=== PATIENT | male | born 1955 | race Caucasian/White ===

== ENCOUNTER 2017-12-23 15:26 | Emergency (ER) | payer OTHER ==
--- NOTE | 2017-12-23 15:36 | EDPHY ---
H & P Stated Complaint: Lump on RLE,swollen R ankle;intermittent numbness R thigh,no inj Time Seen by Provider: 12/23/17 15:35 - Personal History Current Tetanus Diphtheria and Acellular Pertussis (TDAP): Yes - Medical/Surgical History Hx Asthma: No Hx Chronic Respiratory Disease: No Hx Diabetes: No Hx Cardiac Disease: No Hx Renal Disease: No Hx Cirrhosis: No Hx Alcoholism: No Hx HIV/AIDS: No Hx Splenectomy or Spleen Trauma: No Other PMH: umbilical hernia repair,cholesterol/triglycerides, CLL. Sheree disease, hypogonadism - Social History Smoking Status: Never smoked Constitutional: Initial Vital Signs Temperature (C) 36.7 C 12/23/17 15:29 Heart Rate 78 12/23/17 15:29 Respiratory Rate 18 12/23/17 15:29 Blood Pressure 142/87 H 12/23/17 15:29 O2 Sat (%) 97 12/23/17 15:29 O2 Delivery Mode Room Air Allergies/Adverse Reactions: No Known Allergies Allergy (Verified 12/23/17 15:28) Home Medications: Medication Instructions Recorded ASPIRIN 02/02/15 Atorvastatin Calcium 02/02/15 FENOFIBRATE 02/02/15 Fish Oil 02/02/15 Levothyroxine [Synthroid 125 mcg 125 mcg PO DAILY06 12/23/17 (*)] Medical Decision Making - Diagnostics Imaging Results: Imaging Impressions Extremity Venous Study 12/23/17 15:48 Impression: No evidence of deep vein thrombosis in the right lower extremity. Results called and discussed with Tay Mackenzie MD, at 12/23/2017 16:20 Imaging: Discussed imaging studies w/ scallop dredger Radiologist, I viewed and interpreted images myself ED Course/Re-evaluation: CHIEF COMPLAINT: Right leg numbness and swelling HISTORY OF PRESENT ILLNESS: The patient is a 62 y/o male with a history of hypercholesteremia complaining of right leg numbness, right mix lump, and swelling onset several days ago. He did not hit this leg or suffer any trauma. Today he noticed that his ankle was more swollen, he had front thigh numbness, and he had minor low back discomfort that feels different than prior sciatica episodes. Denies headache, chest pain, shortness of breath, abdominal pain, urinary or bowel complaints, fever, paresthesias. REVIEW OF SYSTEMS: A 10 point review of systems was performed and is negative with the exception of the elements mentioned in the history of present illness. PHYSICAL EXAM: HR, BP, O2 Sat, RR. Temp noted General Appearance: Alert, well hydrated, appropriate, and non-toxic appearing. Head: Atraumatic without scalp tenderness or obvious injury Eyes: Pupils equal, round, reactive to light and accommodation, EOMI, no trauma , no injection. Ears: Clear bilaterally, no perforation, normal landmarks Nose: Atraumatic, no rhinorrhea, clear. Throat: There is no erythema or exudates, no lesions, normal tonsils, mucus membranes moist. Neck: Supple, nontender, no lymphadenopathy. Respiratory: No retractions, no distress, no wheezes, and no accessory muscle use. Lungs are clear to auscultation bilaterally. Cardiovascular: Regular rate and rhythm, no murmurs, rubs, or gallops. Bilateral carotid, radial, dorsalis pedis, and posterior tibial pulses intact. Good capillary refill all extremities. Gastrointestinal: Abdomen is soft, nontender, non-distended, no masses, no rebound, no guarding, no peritoneal signs. Musculoskeletal: Right Lower Extremity: Minor discoloration in medial ankle, minor calf swelling. Normal active ROM of all extremities. Neurological: Alert, appropriate, and interactive. The patient has normal DTRs and non-focal cranial nerves, motor, sensory, and cerebellar exam. Skin: No rashes, good turgor, no nodules on palpation. Past medical history: Hypercholesteremia, CLL, Sheree disease, hypogonadism Past surgical history: Umbilical hernia repair Family history: Denies Social history: at bedside, lives in [place], employed DIAGNOSTICS/PROCEDURES/CRITICAL CARE TIME: Right lower extremity ultrasound: No acute findings DIFFERENTIAL DIAGNOSIS: The differential diagnosis for the patient's leg swelling included but was not limited to sciatica hypoalbuminemia, congestive heart failure, cor pulmonale, venous stasis, trauma, and DVT. MEDICAL DECISION MAKING: The patient is a 62 y/o male with a history of hypercholesteremia presenting with right leg numbness, right mix lump, and swelling onset several days ago. On exam he has minor discoloration of the right medial ankle and minor calf swelling. Right lower extremity ultrasound ordered. 1620: Spoke to radiologist, there are no acute findings on patient's ultrasound. Patient's symptoms are consistent with sciatica. 1625: Reassessed patient and discussed imaging findings. I have advised him to follow up with his physician regarding this leg pain. Return precautions provided; patient is comfortable with this plan. Departure - Departure Disposition: Home, Routine, Self-Care Clinical Impression: Right leg swelling, Right leg pain Condition: Good Instructions: Sciatica (ED), Leg Edema (ED), Leg Pain (ED) Additional Instructions: 1. Follow up with your physician for probable sciatica. 2. Return to the emergency department for worsening pain, swelling, numbness, weakness or other concerns. Referrals: ESVIN MILLER [Primary Care Provider] - As per Instructions Report Scribed for: Tay Mackenzie Report Scribed by: Yanet Toscano Date of Report: 12/23/17 Time of Report: 15:37
[2017-12-23 16:37] VITALS: BP 123/71
== END 2017-12-23 16:37 | disposition home or self-care (01) ==
DX: M79.89 Other specified soft tissue disorders (principal); M79.604 Pain in right leg; Z79.82 Long term (current) use of aspirin